=== PATIENT | female | born 1990 | race Two or more races ===

== ENCOUNTER 2022-12-18 05:04 | Inpatient (IN) | payer OTHER ==
[~2022-12-18] VITALS: Ht 160 cm; Wt 84.8 kg
[~2022-12-18 05:04] MED LIST: DOLOGESIC 500-1 EACH PO
== END 2022-12-20 13:28 | disposition home or self-care (01) | DRG 807 ==
LOC: LDR 05:04 → OB/GYN 12:20 → LDR 12-30 10:47
PROVIDERS: ADMIT Specialist; ATTEND Specialist
PROC: 10E0XZZ Delivery of Products of Conception, External Approach (ICD-10-PCS; principal; 2022-12-18)
PROC: 4A1HXCZ Monitoring of Products of Conception, Cardiac Rate, External Approach (ICD-10-PCS; 2022-12-18)
PROC: 3E033VJ Introduction of Other Hormone into Peripheral Vein, Percutaneous Approach (ICD-10-PCS; 2022-12-18)
DX: O24.420 Gestational diabetes mellitus in childbirth, diet controlled (principal); Z37.0 Single live birth; Z3A.38 38 weeks gestation of pregnancy; Z20.822 Contact with and (suspected) exposure to COVID-19